=== PATIENT | female | born 1975 | race Caucasian/White ===

== ENCOUNTER → 2018-05-03 04:02 | Emergency (ER) | payer SELFPAY ==
[2018-05-03] MEDS: ALPRAZOLAM 0.25 MG TAB PO (02:05)
== END | disposition home or self-care (01) ==
DX: I10 Essential (primary) hypertension (principal); F43.9 Reaction to severe stress, unspecified; R40.2142 Coma scale, eyes open, spontaneous, at arrival to emergency department; R40.2362 Coma scale, best motor response, obeys commands, at arrival to emergency department; R40.2252 Coma scale, best verbal response, oriented, at arrival to emergency department; R51 Headache
CPT/HCPCS: 70450; 81025; 99284-25